=== PATIENT | male | born 1980 | race Caucasian/White ===

== ENCOUNTER 2017-12-08 19:04 | Emergency (ER) | payer MEDICAID ==
[~2017-12-08] VITALS: Ht 172.7 cm; Wt 90.3 kg
[2017-12-08 19:20] VITALS: Ht 172.7 cm; Wt 90.3 kg
[2017-12-08 22:21] VITALS: BP 145/99
== END 2017-12-08 22:21 | disposition home or self-care (01) ==
LOC: ED 19:04
DX: S61.312A Laceration without foreign body of right middle finger with damage to nail, initial encounter (principal); Z90.89 Acquired absence of other organs; W25.XXXA Contact with sharp glass, initial encounter; Y93.89 Activity, other specified; Y92.89 Other specified places as the place of occurrence of the external cause; Y99.8 Other external cause status
CPT/HCPCS: 90715; J2001

== ENCOUNTER 2018-05-03 02:01 | Emergency (ER) | payer OTHER ==
[~2018-05-03] VITALS: Ht 172.7 cm; Wt 86.2 kg
[2018-05-03 02:04] VITALS: BP 141/103; Ht 172.7 cm; Wt 86.2 kg
== END 2018-05-03 03:27 | disposition other institution (70) ==
LOC: ED 02:01
DX: Z02.89 Encounter for other administrative examinations (principal)

== ENCOUNTER 2020-01-29 00:41 | Emergency (ER) | payer OTHER, MEDICAID ==
[~2020-01-29] VITALS: Ht 172.7 cm; Wt 90.7 kg
[2020-01-29 00:48] VITALS: Ht 172.7 cm; Wt 90.7 kg
[2020-01-29 02:50] VITALS: BP 165/100
== END 2020-01-29 02:50 ==
LOC: ED 00:41
DX: R07.89 Other chest pain (principal); M79.10 Myalgia, unspecified site; I10 Essential (primary) hypertension; Z90.89 Acquired absence of other organs; V49.49XA Driver injured in collision with other motor vehicles in traffic accident, initial encounter; Y93.I9 Activity, other involving external motion; Y92.411 Interstate highway as the place of occurrence of the external cause; Y99.8 Other external cause status

== ENCOUNTER 2020-01-29 00:41 | Emergency (ER) | payer OTHER | END 2020-01-29 02:50 | LOC: ED 00:41 | DX: Z02.89 Encounter for other administrative examinations (principal) ==

== ENCOUNTER 2020-03-16 18:18 | Emergency (ER) | payer MEDICAID ==
[~2020-03-16] VITALS: Ht 172.7 cm; Wt 81.6 kg
[2020-03-16 18:48] VITALS: BP 145/100; Ht 172.7 cm; Wt 81.6 kg
== END 2020-03-16 19:31 | disposition left against medical advice (07) ==
LOC: ED 18:18
DX: S61.511A Laceration without foreign body of right wrist, initial encounter (principal); W45.8XXA Other foreign body or object entering through skin, initial encounter; Y93.89 Activity, other specified; Y92.89 Other specified places as the place of occurrence of the external cause; Y99.8 Other external cause status
CPT/HCPCS: 90715